=== PATIENT | male | born 1950 | race Two or more races ===

== ENCOUNTER 2017-09-18 11:28 | Inpatient (IN) | payer MEDICARE, OTHER ==
[~2017-09-18] VITALS: Ht 5619.3 cm; Wt 101.3 kg
[~2017-09-18 11:28] MED LIST: ASPI-612 PO; ATOR40TA PO; GLUC-133 PO; LOSA50TA37 PO; MULT-963 PO; NITR0.4T51 SL; PANT-47 PO
[2017-09-18] MEDS ORDERED: metoprolol tartrate 25mg tablet PO ONE (12:05)
[2017-09-18] MEDS ORDERED: morphine 4 MG/ML inj SYRINge IV ONE (12:05)
[2017-09-18] MEDS ORDERED: LORazepam 1 MG tablet PO ONE (12:05)
[2017-09-18] MEDS ORDERED: aspirin 81mg tab.chew PO ONE (12:05)
[2017-09-18 12:21] LABS: BASOPHILS % (AUTO) 0.4 % (0-1); EOSINOPHILS # (AUTO) 0.2 X10'3 (0-0.9); EOSINOPHILS % (AUTO) 2.1 % (0-6); HEMATOCRIT 48.4 % (42.0-52.0); HEMOGLOBIN 16.8 g/dl (14.0-17.9); LYMPHOCYTES # (AUTO) 1.6 X10'3 (1.1-4.8); LYMPHOCYTES % (AUTO) 16.9 % (21-51); MEAN CORPUSCULAR HGB CONC 34.6 % (33.0-36.5); MEAN CORPUSCULAR VOLUME 95.3 FL (78-98); MONOCYTES # (AUTO) 0.8 X10'3 (0-0.9); MONOCYTES % (AUTO) 8.2 % (2-12); NEUTROPHILS % (AUTO) 72.4 % (42-75); PLATELET COUNT 262 X10'3 (140-440); RED BLOOD COUNT 5.08 X10'6 (4.70-6.10); RED CELL DISTRIBUTION WIDTH 13.7 % (11.5-14.5); WHITE BLOOD COUNT 9.7 X10'3 (4.5-11.0)
[2017-09-18 12:32] LABS: PARTIAL THROMBOPLASTIN TIME 30 SECONDS (22-32); PROTHROMBIN TIME 10.4 SECONDS (9.0-12.0)
[2017-09-18 12:38] LABS: ALANINE AMINOTRANSFERASE 32 U/L (12-78); ALBUMIN 4.2 G/DL (3.4-5.0); ALBUMIN/GLOBULIN RATIO 1.1 (1.1-1.5); ALKALINE PHOSPHATASE 82 IU/L (46-116); ANION GAP 14 (8-16); ASPARTATE AMINO TRANSFERASE 21 U/L (10-37); BILIRUBIN,TOTAL 1.7 MG/DL (0.1-1.0); BLOOD UREA NITROGEN 15 MG/DL (7-18); BUN/CREATININE RATIO 14.9 (5.4-32.0); CALCIUM 9.4 MG/DL (8.5-10.1); CHLORIDE 103 MMOL/L (99-107); CREATININE 1.01 MG/DL (0.60-1.10); GLUCOSE 120 MG/DL (70-104); POTASSIUM 3.8 MMOL/L (3.5-5.1); SODIUM 141 MMOL/L (135-145); TOTAL CARBON DIOXIDE 23.8 MMOL/L (24-32); eGFR 74 ML/MIN
[2017-09-18] MEDS: nitroGLYCERIN 0.4mg SUBLingual tab SL PRN ×2 (12:43→13:32)
[2017-09-18] MEDS ORDERED: morphine 2 MG/ML inj. syringe IV ONE (12:45)
[2017-09-18] MEDS ORDERED: acetaminophen 325mg tablet PO PRN ×2 (14:55)
[2017-09-18] MEDS ORDERED: nitroGLYCERIN 0.4mg SUBLingual tab SL PRN (14:55)
[2017-09-18 15:32] LABS: D-DIMER < 0.19 MG/L FEU (0-0.50)
[2017-09-18 15:52] LABS: HEMOGLOBIN A1C 5.3 % (4.5-6.2)
[2017-09-18 15:57] LABS: CKMB RELATIVE INDEX 0.7 RATIO (0-2.5); CREATINE KINASE 184 U/L (39-308); LIPASE 106 U/L (73-393)
[2017-09-18 16:41] VITALS: BP 136/98
[2017-09-18] MEDS: heparin, porcine 5000 units/ml vial SQ SCH (16:47)
[2017-09-18 19:00] VITALS: BP 139/94
[2017-09-18] MEDS ORDERED: temazepam 15mg capsule PO PRN (21:00)
[2017-09-18] MEDS ORDERED: losartan 50mg tablet PO SCH (21:00)
[2017-09-18 23:00] VITALS: BP 128/85
[2017-09-19 03:00] VITALS: BP 110/66
[2017-09-19] MEDS: heparin, porcine 5000 units/ml vial SQ SCH ×2 (03:24→08:08)
[2017-09-19 05:22] LABS: BASOPHILS % (AUTO) 0.6 % (0-1); EOSINOPHILS # (AUTO) 0.4 X10'3 (0-0.9); EOSINOPHILS % (AUTO) 5.4 % (0-6); HEMOGLOBIN 16.2 g/dl (14.0-17.9); LYMPHOCYTES % (AUTO) 24.4 % (21-51); MEAN CORPUSCULAR HEMOGLOBIN 33.1 PG (27.0-31.0); MEAN CORPUSCULAR HGB CONC 34.5 % (33.0-36.5); MEAN CORPUSCULAR VOLUME 95.9 FL (78-98); MEAN PLATELET VOLUME 8.5 FL (7.4-10.4); MONOCYTES # (AUTO) 0.7 X10'3 (0-0.9); NEUTROPHILS # (AUTO) 4.9 X10'3 (1.8-7.7); NEUTROPHILS % (AUTO) 60.6 % (42-75); PLATELET COUNT 223 X10'3 (140-440); RED CELL DISTRIBUTION WIDTH 13.9 % (11.5-14.5)
[2017-09-19 05:39] LABS: ALANINE AMINOTRANSFERASE 58 U/L (12-78); ALBUMIN 3.8 G/DL (3.4-5.0); ALBUMIN/GLOBULIN RATIO 1.1 (1.1-1.5); ALKALINE PHOSPHATASE 95 IU/L (46-116); ANION GAP 10 (8-16); ASPARTATE AMINO TRANSFERASE 34 U/L (10-37); BILIRUBIN,TOTAL 2.5 MG/DL (0.1-1.0); BLOOD UREA NITROGEN 17 MG/DL (7-18); BUN/CREATININE RATIO 14.8 (5.4-32.0); CALCIUM 8.6 MG/DL (8.5-10.1); CHLORIDE 104 MMOL/L (99-107); CREATININE 1.15 MG/DL (0.60-1.10); GLUCOSE 99 MG/DL (70-104); MAGNESIUM 1.8 MG/DL (1.5-2.4); PHOSPHORUS 4.4 MG/DL (2.3-4.5); POTASSIUM 3.9 MMOL/L (3.5-5.1); SODIUM 141 MMOL/L (135-145); TOTAL CARBON DIOXIDE 26.6 MMOL/L (24-32); TOTAL PROTEIN 7.3 G/DL (6.4-8.2); eGFR 64 ML/MIN
[2017-09-19 06:00] VITALS: BP 126/76
[2017-09-19] MEDS ORDERED: atorvastatin 20mg tablet PO SCH (08:00)
[2017-09-19] MEDS ORDERED: multivitamins, therapeutics tablet PO SCH (08:00)
[2017-09-19] MEDS ORDERED: non-formulary drug (Atorvastatin Calcium* (Lipitor*) 1 TAB) PO SCH (08:00)
[2017-09-19] MEDS ORDERED: pantoprazole 40mg Tablet.DR PO SCH (08:00)
[2017-09-19] MEDS ORDERED: aspirin 325mg tablet PO SCH (08:00)
[2017-09-19] MEDS ORDERED: [UNRECOGNIZED DRUG - OTHER] PO SCH (08:00)
== END 2017-09-19 15:14 | disposition home or self-care (01) | DRG 312 ==
LOC: ER 11:28 → ED HOLD 14:53 → PCU 3S 16:35 → CMPBEDREQ 19:34
PROVIDERS: ADMIT Family Medicine; ATTEND Internal Medicine
DX: R55 Syncope and collapse (principal); J44.9 Chronic obstructive pulmonary disease, unspecified; I25.110 Atherosclerotic heart disease of native coronary artery with unstable angina pectoris; E78.5 Hyperlipidemia, unspecified; I10 Essential (primary) hypertension; Z53.21 Procedure and treatment not carried out due to patient leaving prior to being seen by health care provider; F12.90 Cannabis use, unspecified, uncomplicated; M54.9 Dorsalgia, unspecified; G89.29 Other chronic pain; K21.9 Gastro-esophageal reflux disease without esophagitis; Z90.49 Acquired absence of other specified parts of digestive tract; Z90.12 Acquired absence of left breast and nipple; Z79.899 Other long term (current) drug therapy; Z79.82 Long term (current) use of aspirin; Z86.73 Personal history of transient ischemic attack (TIA), and cerebral infarction without residual deficits; Z82.49 Family history of ischemic heart disease and other diseases of the circulatory system
CPT/HCPCS: 36415; 70450; 70544; 70551; 71045; 80053; 82550; 82553; 82607; 82746; 83036; 83690; 83735; 84100; 84484; 85025; 85379; 85610; 85730; 87070; 93005; 93880; 96374; 96376; 99285; J1644; J2270

== ENCOUNTER 2022-02-28 11:28 | Emergency (ER) | payer MEDICARE ==
[~2022-02-28] VITALS: Ht 170.2 cm; Wt 95.5 kg
[~2022-02-28 11:28] MED LIST changes: -LOSA50TA37 PO; +LOSA50TA64 PO
[2022-02-28 12:26] LABS: BASOPHILS # (AUTO) 0.1 X10'3 (0-0.2); BASOPHILS % (AUTO) 0.9 % (0-1); EOSINOPHILS # (AUTO) 0.2 X10'3 (0-0.9); EOSINOPHILS % (AUTO) 2.2 % (0-6); HEMATOCRIT 47.8 % (42.0-52.0); HEMOGLOBIN 16.3 g/dl (14.0-17.9); LYMPHOCYTES % (AUTO) 21.8 % (21-51); MEAN CORPUSCULAR HEMOGLOBIN 32.1 PG (27.0-31.0); MEAN CORPUSCULAR HGB CONC 34.2 g/dL (33.0-36.5); MEAN CORPUSCULAR VOLUME 93.9 FL (78-98); MEAN PLATELET VOLUME 8.2 FL (7.4-10.4); MONOCYTES # (AUTO) 0.7 X10'3 (0-0.9); MONOCYTES % (AUTO) 7.9 % (2-12); NEUTROPHILS # (AUTO) 6.3 X10'3 (1.8-7.7); NEUTROPHILS % (AUTO) 67.2 % (42-75); PLATELET COUNT 247 X10'3 (140-440); RED BLOOD COUNT 5.09 X10'6 (4.70-6.10); RED CELL DISTRIBUTION WIDTH 13.6 % (11.5-14.5); WHITE BLOOD COUNT 9.3 X10'3 (4.5-11.0)
[2022-02-28 12:39] LABS: ALANINE AMINOTRANSFERASE 22 U/L (12-78); ALBUMIN/GLOBULIN RATIO 1.1 (1.1-1.5); ALKALINE PHOSPHATASE 67 IU/L (46-116); ANION GAP 12 (8-16); ASPARTATE AMINO TRANSFERASE 18 U/L (10-37); BILIRUBIN,TOTAL 1.1 MG/DL (0.1-1.0); BLOOD UREA NITROGEN 16 MG/DL (7-18); BUN/CREATININE RATIO 14.7 (5.4-32.0); CALCIUM 9.2 MG/DL (8.5-10.1); CHLORIDE 108 MMOL/L (99-107); CREATININE 1.09 MG/DL (0.60-1.10); GLUCOSE 113 MG/DL (70-104); POTASSIUM 3.9 MMOL/L (3.5-5.1); SODIUM 142 MMOL/L (135-145); TOTAL CARBON DIOXIDE 22.2 MMOL/L (24-32); TOTAL PROTEIN 7.8 G/DL (6.4-8.2); eGFR 67 ML/MIN
[2022-02-28 14:13] VITALS: BP 127/89
== END 2022-02-28 14:15 | disposition home or self-care (01) ==
LOC: ER 11:29
DX: J45.909 Unspecified asthma, uncomplicated (principal); R07.81 Pleurodynia; I10 Essential (primary) hypertension; R11.2 Nausea with vomiting, unspecified; G89.29 Other chronic pain; F12.90 Cannabis use, unspecified, uncomplicated; Z90.49 Acquired absence of other specified parts of digestive tract; Z88.8 Allergy status to other drugs, medicaments and biological substances; Z79.899 Other long term (current) drug therapy; Z86.16 Personal history of COVID-19
CPT/HCPCS: 36415; 71045; 80053; 83880; 84484; 85025; 93005; 99285

== ENCOUNTER 2023-02-09 16:02 | Inpatient (IN) | payer MEDICARE ==
[~2023-02-09] VITALS: Ht 170.2 cm; Wt 95.0 kg
[2023-02-09] MEDS ORDERED: diltiazem 5mg/ml 5ml inj. IV ONE (16:10)
[2023-02-09] MEDS ORDERED: LORazepam 2 mg/ml vial IV ONE (16:30)
[2023-02-09] MEDS ORDERED: diltiazem-NS 100mg/100ml 100 ML IV SCH (16:30)
[2023-02-09 17:32] LABS: BASOPHILS # (AUTO) 0.1 X10'3 (0-0.2); BASOPHILS % (AUTO) 0.8 % (0-1); EOSINOPHILS # (AUTO) 0.1 X10'3 (0-0.9); EOSINOPHILS % (AUTO) 1.4 % (0-6); HEMATOCRIT 49.1 % (42.0-52.0); HEMOGLOBIN 16.8 g/dl (14.0-17.9); LYMPHOCYTES # (AUTO) 2.1 X10'3 (1.1-4.8); LYMPHOCYTES % (AUTO) 20.4 % (21-51); MEAN CORPUSCULAR HEMOGLOBIN 32.9 PG (27.0-31.0); MEAN CORPUSCULAR HGB CONC 34.3 g/dL (33.0-36.5); MEAN CORPUSCULAR VOLUME 96.1 FL (78-98); MEAN PLATELET VOLUME 7.8 FL (7.4-10.4); MONOCYTES # (AUTO) 0.9 X10'3 (0-0.9); MONOCYTES % (AUTO) 8.7 % (2-12); NEUTROPHILS % (AUTO) 68.7 % (42-75); PLATELET COUNT 260 X10'3 (140-440); RED BLOOD COUNT 5.12 X10'6 (4.70-6.10); RED CELL DISTRIBUTION WIDTH 13.7 % (11.5-14.5); WHITE BLOOD COUNT 10.2 X10'3 (4.5-11.0)
[2023-02-09 18:32] LABS: ALANINE AMINOTRANSFERASE 30 U/L (12-78); ALBUMIN 3.9 G/DL (3.4-5.0); ALBUMIN/GLOBULIN RATIO 1.1 (1.1-1.5); ALKALINE PHOSPHATASE 78 IU/L (46-116); ANION GAP 14 (8-16); ASPARTATE AMINO TRANSFERASE 20 U/L (10-37); BILIRUBIN,TOTAL 2.6 MG/DL (0.1-1.0); BLOOD UREA NITROGEN 25 MG/DL (7-18); BUN/CREATININE RATIO 22.5 (10.0-20.0); CALCIUM 9.3 MG/DL (8.5-10.1); CHLORIDE 104 MMOL/L (99-107); CREATININE 1.11 MG/DL (0.60-1.10); GLUCOSE 131 MG/DL (70-104); POTASSIUM 3.7 MMOL/L (3.5-5.1); SODIUM 141 MMOL/L (135-145); TOTAL CARBON DIOXIDE 23.4 MMOL/L (24-32); TOTAL PROTEIN 7.4 G/DL (6.4-8.2); eGFR 65 ML/MIN
[2023-02-09] MEDS ORDERED: potassium Cl 40MEQ/1/2NS 520ml 520 ML IV PRN (19:50)
[2023-02-09] MEDS ORDERED: potassium Cl 20 mEq SR tablet PO PRN ×2 (19:50)
[2023-02-09] MEDS ORDERED: mag hydrox/Alum hydrox/simeth 30ml oral suspension PO PRN (19:50)
[2023-02-09] MEDS ORDERED: ondansetron/PF 4mg/2ml inj IV PRN (19:50)
[2023-02-09] MEDS ORDERED: magnesium 4gm in 100ml NS 100 ML IV PRN (19:50)
[2023-02-09] MEDS ORDERED: acetaminophen 325mg tablet PO PRN (19:50)
[2023-02-09 20:00] VITALS: BP 115/83
[2023-02-09] MEDS: docusate sod 100mg capsule PO SCH (20:00)
[2023-02-09] MEDS: K and/or MAG REPLACEMENT MC SCH (20:15)
[2023-02-09] MEDS: apixaban 5mg tablet PO SCH (20:29)
--- NOTE | 2023-02-09 20:36 | NUR ---
PT CONVERTED TO NORMAL SINUS RHYTHM AT 1955. MD FLORES NOTIFIED.
[2023-02-09 23:00] VITALS: BP 121/80
[2023-02-10] VITALS (16 sets, daily range): BP systolic 109–173; BP diastolic 78–101
[2023-02-10 06:23] LABS: BASOPHILS # (AUTO) 0.1 X10'3 (0-0.2); EOSINOPHILS # (AUTO) 0.4 X10'3 (0-0.9); EOSINOPHILS % (AUTO) 4.7 % (0-6); HEMATOCRIT 48.3 % (42.0-52.0); HEMOGLOBIN 16.5 g/dl (14.0-17.9); MEAN CORPUSCULAR HEMOGLOBIN 32.6 PG (27.0-31.0); MEAN CORPUSCULAR HGB CONC 34.1 g/dL (33.0-36.5); MEAN CORPUSCULAR VOLUME 95.7 FL (78-98); MEAN PLATELET VOLUME 8.1 FL (7.4-10.4); MONOCYTES # (AUTO) 0.8 X10'3 (0-0.9); MONOCYTES % (AUTO) 9.8 % (2-12); NEUTROPHILS % (AUTO) 60.5 % (42-75); PLATELET COUNT 252 X10'3 (140-440); RED BLOOD COUNT 5.05 X10'6 (4.70-6.10); RED CELL DISTRIBUTION WIDTH 13.6 % (11.5-14.5); WHITE BLOOD COUNT 8.3 X10'3 (4.5-11.0)
[2023-02-10 06:32] LABS: ALANINE AMINOTRANSFERASE 24 U/L (12-78); ALBUMIN 3.6 G/DL (3.4-5.0); ALBUMIN/GLOBULIN RATIO 0.9 (1.1-1.5); ALKALINE PHOSPHATASE 69 IU/L (46-116); ANION GAP 10 (8-16); ASPARTATE AMINO TRANSFERASE 18 U/L (10-37); BILIRUBIN,TOTAL 2.4 MG/DL (0.1-1.0); BLOOD UREA NITROGEN 25 MG/DL (7-18); BUN/CREATININE RATIO 26.6 (10.0-20.0); CALCIUM 9.2 MG/DL (8.5-10.1); CHLORIDE 107 MMOL/L (99-107); CREATININE 0.94 MG/DL (0.60-1.10); GLUCOSE 122 MG/DL (70-104); MAGNESIUM 1.9 MG/DL (1.5-2.4); POTASSIUM 3.9 MMOL/L (3.5-5.1); SODIUM 143 MMOL/L (135-145); TOTAL CARBON DIOXIDE 26.1 MMOL/L (24-32); TOTAL PROTEIN 7.4 G/DL (6.4-8.2); eGFR 79 ML/MIN
[2023-02-10] MEDS: K and/or MAG REPLACEMENT MC SCH (08:00)
[2023-02-10] MEDS: docusate sod 100mg capsule PO SCH (08:03)
[2023-02-10] MEDS: apixaban 5mg tablet PO SCH (08:03)
[2023-02-10] MEDS ORDERED: FLO0.4C PO (11:31)
[2023-02-10] MEDS ORDERED: ALBU8HFA PO (11:31)
[2023-02-10] MEDS ORDERED: metoprolol tartrate 1mg/ml inj IV PRN (12:50)
[2023-02-10] MEDS ORDERED: aminophylline 250mg/10ml inj. IV PRN (12:50)
[2023-02-10] MEDS ORDERED: regadenoson 0.4mg/5ml syringe IV PRN (12:50)
[2023-02-10] MEDS ORDERED: nitroGLYCERIN 0.4mg SUBLingual tab SL PRN (12:50)
[2023-02-10] MEDS ORDERED: iohexol 350MG/ML 100ml bottle IV ONE (13:17)
[2023-02-10 13:32] LABS: HEMOGLOBIN A1C 6.2 % (4.5-6.2)
[2023-02-10 13:45] LABS: CHOL/HDL RATIO 3.2 (0.00-4.99); CHOLESTEROL 120 MG/DL (0-200); HDL CHOLESTEROL 37 MG/DL (35-60); LDL CHOLESTEROL 67 MG/DL (50-100); TRIGLYCERIDES 106 MG/DL (20-135)
[2023-02-10] MEDS ORDERED: metoprolol succinate 25mg (24-HOUR) SR. Tablet PO SCH (17:15)
[2023-02-10] MEDS ORDERED: aspirin 81mg tab.chew PO ONE (17:15)
[2023-02-10] MEDS ORDERED: APIX5TAB3 PO (18:00)
[2023-02-10] MEDS ORDERED: METO-395 PO (18:00)
--- NOTE | 2023-02-10 18:45 | NUR ---
Patient in room PCU 3027. I have received report from Ag EDUARDO and had the opportunity to ask questions and assume patient care.pt d/c'd and waiting for ride
--- NOTE | 2023-02-10 19:35 | NUR ---
pt education given by day shift nurse, iv out and intact, all lines and monitors dc'd. pt a/o and discharged home via private vehicle accompanied by family. pt stable for discharge and given follow up instructions
[2023-02-11] MEDS ORDERED: aspirin 81mg tab.chew PO SCH (08:30)
== END 2023-02-10 19:30 | disposition home or self-care (01) | DRG 205 ==
LOC: ER 16:04 → ED HOLD 19:53 → PCU 3S 22:25
PROVIDERS: ADMIT Family Medicine; ATTEND Family Medicine
PROC: B32T1ZZ Computerized Tomography (CT Scan) of Left Pulmonary Artery using Low Osmolar Contrast (ICD-10-PCS; principal; 2023-02-10)
PROC: B3201ZZ Computerized Tomography (CT Scan) of Thoracic Aorta using Low Osmolar Contrast (ICD-10-PCS; 2023-02-10)
PROC: B32S1ZZ Computerized Tomography (CT Scan) of Right Pulmonary Artery using Low Osmolar Contrast (ICD-10-PCS; 2023-02-10)
DX: M94.0 Chondrocostal junction syndrome [Tietze] (principal); I50.23 Acute on chronic systolic (congestive) heart failure; N17.0 Acute kidney failure with tubular necrosis; I48.0 Paroxysmal atrial fibrillation; Z66 Do not resuscitate; F41.9 Anxiety disorder, unspecified; I11.0 Hypertensive heart disease with heart failure; I25.10 Atherosclerotic heart disease of native coronary artery without angina pectoris; G89.29 Other chronic pain; J84.10 Pulmonary fibrosis, unspecified; R07.89 Other chest pain; R73.03 Prediabetes; M54.9 Dorsalgia, unspecified; F12.90 Cannabis use, unspecified, uncomplicated; R26.2 Difficulty in walking, not elsewhere classified; J44.9 Chronic obstructive pulmonary disease, unspecified; Z79.01 Long term (current) use of anticoagulants; Z82.49 Family history of ischemic heart disease and other diseases of the circulatory system; Z86.73 Personal history of transient ischemic attack (TIA), and cerebral infarction without residual deficits; Z90.12 Acquired absence of left breast and nipple; Z90.49 Acquired absence of other specified parts of digestive tract; Z95.5 Presence of coronary angioplasty implant and graft; Z88.5 Allergy status to narcotic agent; Z79.899 Other long term (current) drug therapy; Z79.82 Long term (current) use of aspirin; Z87.891 Personal history of nicotine dependence
CPT/HCPCS: 36415; 71045; 71275; 80053; 80061; 83036; 83735; 83880; 84443; 84484; 85025; 87081; 93005; 93306; 93308; 99285; A6258; G0378; J2060; J3490; Q9967